=== PATIENT | male | born 1995 | race Caucasian/White ===

== ENCOUNTER 2021-05-25 13:31 | Outpatient (CLI) | payer OTHER, SELFPAY ==
--- NOTE | ~2021-05-25 | US_ITS ---
EXAMINATION: US soft tissue head and neck DATE: 05/25/2021 13:49 INDICATION: Lumps under the chin and behind the left ear. TECHNIQUE: Multiple grayscale and Doppler ultrasound images of the head and neck were obtained. COMPARISON: None FINDINGS: There are normal lymph nodes under the chin and behind the left ear in the patient's areas of concern. IMPRESSION: 1. Normal lymph nodes in the patient's areas of concern. Reviewed, dictated and finalized at location A. [facility]
== END 2021-05-25 13:32 | disposition home or self-care (01) ==
LOC: CHSIMG 13:33
PROVIDERS: PCP Nurse Practitioner Family; Visit Provider Nurse Practitioner Family
DX: R22.0 Localized swelling, mass and lump, head (principal); H93.8X9 Other specified disorders of ear, unspecified ear
CPT/HCPCS: 76536